=== PATIENT | male | born 1990 | race Caucasian/White ===

== ENCOUNTER 2022-05-09 22:02 | Emergency (ER) | payer SELFPAY | END 2022-05-10 00:05 | disposition home or self-care (01) | LOC: JD.ED 22:02 | DX: S62.611A Displaced fracture of proximal phalanx of left index finger, initial encounter for closed fracture (principal); F17.210 Nicotine dependence, cigarettes, uncomplicated; W23.1XXA Caught, crushed, jammed, or pinched between stationary objects, initial encounter | CPT/HCPCS: 73130-26-LT; 73130-LT; 99283 ==

== ENCOUNTER 2022-05-28 06:16 | Emergency (ER) | payer MEDICAID ==
[2022-05-28] MEDS ORDERED: Sodium Chloride 0.9% 1,000 ML IV ONE (06:47)
[2022-05-28] MEDS ORDERED: Prochlorperazine 10 MG in Sodium Chloride 0.9% 50 ML IV ONE ×2 (06:47→08:00)
[2022-05-28] MEDS ORDERED: Piperacillin/Tazobactam 4.5 GM in Sodium Chloride 0.9% 100 ML IV ONE (11:17)
[2022-05-28] MEDS ORDERED: Iopamidol 612 MG/ML 100 ML Bottle IVPUSH ONE (11:17)
[2022-05-28] MEDS ORDERED: Sodium Chloride 0.9% 10 ML Syringe FLUSH PRN (11:17)
[2022-05-28 12:33] LABS: CORONAVIRUS COVID-19 NAA NEGATIVE (NEGATIVE)
== END 2022-05-28 13:15 | disposition home or self-care (01) ==
LOC: JD.ED 06:16
DX: K72.00 Acute and subacute hepatic failure without coma (principal); D70.9 Neutropenia, unspecified; I10 Essential (primary) hypertension; F17.210 Nicotine dependence, cigarettes, uncomplicated; Z20.822 Contact with and (suspected) exposure to COVID-19
CPT/HCPCS: 0240U; 36415; 71045; 74177; 80053; 81001; 83605; 83690; 85025; 85610; 85730; 86140; 87040; 96361; 96365; 96367; 99284; J0780; J2543; J3490; J7030; Q9967

== ENCOUNTER 2022-06-08 09:37 | Emergency (ER) | payer MEDICAID | END 2022-06-08 10:05 | disposition left against medical advice (07) | LOC: JD.ED 09:37 | DX: Z53.21 Procedure and treatment not carried out due to patient leaving prior to being seen by health care provider (principal) ==

== ENCOUNTER 2022-06-25 02:04 | Emergency (ER) | payer MEDICAID ==
[2022-06-25] MEDS ORDERED: Ondansetron 4 MG/2 ML SDV IVPUSH ONE (02:41)
[2022-06-25] MEDS ORDERED: Sodium Chloride 0.9% 10 ML Syringe FLUSH PRN (02:41)
[2022-06-25] MEDS ORDERED: LORazepam 2 MG/ML SDV IVPUSH ONE (02:42)
[2022-06-25] MEDS ORDERED: Sodium Chloride 0.9% 1,000 ML IV SCH (02:45)
== END 2022-06-25 06:22 | disposition home or self-care (01) ==
LOC: JD.ED 02:04
DX: K70.9 Alcoholic liver disease, unspecified (principal); F10.120 Alcohol abuse with intoxication, uncomplicated; Y90.1 Blood alcohol level of 20-39 mg/100 ml
CPT/HCPCS: 36415; 80053; 80143; 80179; 80306; 80307; 83735; 84443; 85025; 96361; 96374; 96375; 99284; 99284-25; J2060; J2405; J3490; J7030

== ENCOUNTER 2022-09-05 21:35 | Emergency (ER) | payer MEDICAID ==
[2022-09-05] MEDS ORDERED: levETIRAcetam 500 MG Tab PO STA (22:11)
[2022-09-05] MEDS ORDERED: Sodium Chloride 0.9% 1,000 ML IV ONE (22:13)
[2022-09-05] MEDS ORDERED: Magnesium Oxide 400 MG Tab PO ONE (23:36)
== END 2022-09-06 01:03 ==
LOC: JD.ED 21:35
DX: G40.909 Epilepsy, unspecified, not intractable, without status epilepticus (principal); E83.42 Hypomagnesemia; F10.220 Alcohol dependence with intoxication, uncomplicated; I10 Essential (primary) hypertension; F17.220 Nicotine dependence, chewing tobacco, uncomplicated; Z86.16 Personal history of COVID-19; Z79.899 Other long term (current) drug therapy
CPT/HCPCS: 36415; 80053; 80306; 80307; 83735; 85025; 96360; 99284; A9270; J7030; 99283

== ENCOUNTER 2022-10-06 17:35 | Emergency (ER) | payer MEDICAID ==
[2022-10-06] MEDS ORDERED: chlordiazePOXIDE 25 MG Cap PO ONE ×2 (18:25→18:37)
[2022-10-06] MEDS ORDERED: Ondansetron 4 MG Tab.DIS PO ONE (18:51)
== END 2022-10-06 19:06 ==
LOC: JD.ED 17:35
DX: F10.939 Alcohol use, unspecified with withdrawal, unspecified (principal); I10 Essential (primary) hypertension; Z86.16 Personal history of COVID-19; Z79.899 Other long term (current) drug therapy
CPT/HCPCS: 99285; A9270; 99283

== ENCOUNTER 2022-10-07 16:52 | Emergency (ER) | payer MEDICAID ==
[2022-10-07] MEDS ORDERED: Sodium Chloride 0.9% 10 ML Syringe FLUSH PRN (17:09)
[2022-10-07] MEDS ORDERED: LORazepam 2 MG/ML SDV IVPUSH ONE ×3 (17:19→18:16)
[2022-10-07] MEDS ORDERED: Sodium Chloride 0.9% 1,000 ML IV STA ×3 (17:19→21:12)
[2022-10-07 17:32] LABS: BASOPHILS ABSOLUTE AUTO 0.02 K/mm3 (0.01-0.08); BASOPHILS PERCENT AUTO 0.4 % (0.1-1.2); EOSINOPHILS ABSOLUTE AUTO 0.04 K/mm3 (0.04-0.54); EOSINOPHILS PERCENT AUTO 0.8 (0.8-7.0); HEMATOCRIT 40.1 % (40.1-51.0); HEMOGLOBIN 13.7 gm/dl (13.7-17.5); IMMATURE GRAN ABSOLUTE AUTO 0.01 K/mm3 (0.00-0.10); IMMATURE GRAN PERCENT AUTO 0.2 % (<=1.0); LYMPHOCYTES ABSOLUTE AUTO 0.84 K/mm3 (1.32-3.57); LYMPHOCYTES PERCENT AUTO 16.4 % (21.8-53.1); MEAN CORPUSCULAR HEMOGLOBIN 31.7 pg (25.7-32.2); MEAN CORPUSCULAR HGB CONC 34.2 g/dl (32.2-35.5); MEAN CORPUSCULAR VOLUME 92.8 fl (79.0-92.2); MONOCYTES ABSOLUTE AUTO 0.93 K/mm3 (0.30-0.82); MONOCYTES PERCENT AUTO 18.2 % (5.3-12.2); NEUTROPHILS ABSOLUTE AUTO 3.27 K/mm3 (1.78-5.38); PLATELET COUNT,PLT 90 K/mm3 (163-337); RED BLOOD CELL COUNT 4.32 M/mm3 (4.63-6.08); WHITE BLOOD CELL COUNT,WBC 5.11 K/mm3 (4.23-9.07)
[2022-10-07 17:48] LABS: SLIDE REVIEW ABNORMAL SMEAR
[2022-10-07 17:51] LABS: A/G RATIO 0.9 (1-2); ALBUMIN 3.8 g/dl (3.4-5.0); ANION GAP 18.5 (5-15); BILIRUBIN TOTAL 4.3 mg/dL (0.2-1.0); BUN/CREATININE RATIO 16.4 (14-18); CALCIUM 9.2 mg/dL (8.5-10.1); EST CRCL DRUG DOSING (CG) 106.8 mL/min; POTASSIUM,K 3.5 mEq/L (3.5-5.1)
[2022-10-07 17:54] LABS: CREATININE 1.1 mg/dL (0.7-1.3)
[2022-10-07] MEDS: LORazepam 2 MG/ML SDV IVPUSH PRN ×3 (19:46→23:09)
[2022-10-07] MEDS ORDERED: Haloperidol Lactate 5 MG/ML SDV IVPUSH ONE (20:19)
[2022-10-07] MEDS ORDERED: Haloperidol Lactate 5 MG/ML SDV ONE (20:21)
[2022-10-07] MEDS ORDERED: Thiamine 200 MG/2 ML MDV IVPUSH ONE (20:26)
[2022-10-07 21:18] LABS: APPEARANCE,URINE CLEAR (Clear); BILIRUBIN,URINE 3+ (Negative); COLOR,URINE AMBER (Yellow); GLUCOSE,URINE NEGATIVE (Negative); KETONES,URINE 1+ (Negative); LEUKOCYTE ESTERASE,URINE NEGATIVE (Negative); NITRITE,URINE NEGATIVE (Negative); OCCULT BLOOD,URINE 2+ (Negative); PROTEIN,URINE 1+ (Negative); UROBILINOGEN,URINE >=8.0 (0.2-1.0)
[2022-10-07 21:25] LABS: BACTERIA,URINE MODERATE /hpf (FEW); HYALINE CASTS,URINE 0-5 /lpf (0-5); MUCUS,URINE FEW /hpf (FEW); RBC,URINE >100 /hpf (0-5); SQUAMOUS EPITHELIAL CELLS,UR NOT SEEN /hpf (0-5); WBC,URINE 0-5 /hpf (0-5)
[2022-10-08] MEDS ORDERED: Haloperidol Lactate 5 MG/ML SDV ONE (00:06)
[2022-10-08] MEDS ORDERED: Haloperidol Lactate 5 MG/ML SDV IVPUSH ONE (00:07)
[2022-10-08] MEDS: LORazepam 2 MG/ML SDV IVPUSH PRN ×6 (01:49→13:04)
== END 2022-10-08 13:50 ==
LOC: JD.ED 16:52
DX: R44.3 Hallucinations, unspecified (principal); F10.10 Alcohol abuse, uncomplicated; I10 Essential (primary) hypertension; Z86.16 Personal history of COVID-19; Z79.899 Other long term (current) drug therapy; Z20.822 Contact with and (suspected) exposure to COVID-19
CPT/HCPCS: 36415; 80053; 80307; 81001; 82140; 85025; 87635; 96361; 96374; 96375; 96376; 99285; J1630; J2060; J3411; J3490; J7030; U0002

== ENCOUNTER 2022-11-08 13:07 | Emergency (ER) | payer MEDICAID | END 2022-11-08 13:42 | disposition home or self-care (01) | LOC: JD.ED 13:07 | DX: L02.212 Cutaneous abscess of back [any part, except buttock and flank] (principal); L03.312 Cellulitis of back [any part except buttock and flank]; I10 Essential (primary) hypertension; Z86.16 Personal history of COVID-19; Z79.899 Other long term (current) drug therapy | CPT/HCPCS: 99282; 99283 ==

== ENCOUNTER 2022-12-04 03:46 | Emergency (ER) | payer MEDICAID ==
[2022-12-04] MEDS ORDERED: Sodium Chloride 0.9% 1,000 ML IV ONE (03:55)
[2022-12-04 03:59] LABS: BASOPHILS ABSOLUTE AUTO 0.03 K/mm3 (0.01-0.08); BASOPHILS PERCENT AUTO 0.6 % (0.1-1.2); EOSINOPHILS ABSOLUTE AUTO 0.03 K/mm3 (0.04-0.54); EOSINOPHILS PERCENT AUTO 0.6 (0.8-7.0); HEMATOCRIT 43.1 % (40.1-51.0); HEMOGLOBIN 14.4 gm/dl (13.7-17.5); LYMPHOCYTES ABSOLUTE AUTO 0.83 K/mm3 (1.32-3.57); LYMPHOCYTES PERCENT AUTO 17.4 % (21.8-53.1); MEAN CORPUSCULAR HEMOGLOBIN 31.8 pg (25.7-32.2); MEAN CORPUSCULAR HGB CONC 33.4 g/dl (32.2-35.5); MEAN CORPUSCULAR VOLUME 95.1 fl (79.0-92.2); MEAN PLATELET VOLUME 10.6 fl (9.4-12.3); MONOCYTES ABSOLUTE AUTO 0.64 K/mm3 (0.30-0.82); MONOCYTES PERCENT AUTO 13.4 % (5.3-12.2); NEUTROPHILS ABSOLUTE AUTO 3.25 K/mm3 (1.78-5.38); PLATELET COUNT,PLT 55 K/mm3 (163-337); RED BLOOD CELL COUNT 4.53 M/mm3 (4.63-6.08); WHITE BLOOD CELL COUNT,WBC 4.78 K/mm3 (4.23-9.07)
[2022-12-04] MEDS ORDERED: LORazepam 2 MG/ML SDV IM SCH (04:00)
[2022-12-04] MEDS ORDERED: LORazepam 2 MG/ML SDV IVPUSH ONE (04:02)
[2022-12-04 04:18] LABS: A/G RATIO 0.8 (1-2); ALBUMIN 3.7 g/dl (3.4-5.0); ANION GAP 26.2 (5-15); BILIRUBIN TOTAL 4.6 mg/dL (0.2-1.0); BUN/CREATININE RATIO 5.5 (14-18); CALCIUM 9.8 mg/dL (8.5-10.1); EST CRCL DRUG DOSING (CG) 106.8 mL/min; POTASSIUM,K 3.2 mEq/L (3.5-5.1)
[2022-12-04 04:21] LABS: CREATININE 1.1 mg/dL (0.7-1.3); PROTEIN TOTAL,TP 8.5 g/dl (6.4-8.2)
[2022-12-04 04:37] LABS: SLIDE REVIEW ABNORMAL SMEAR
[2022-12-04] MEDS ORDERED: Potassium Chloride 20 MEQ Tab.ER PO ONE (06:22)
== END 2022-12-04 06:51 | disposition home or self-care (01) ==
LOC: JD.ED 03:46
DX: G40.909 Epilepsy, unspecified, not intractable, without status epilepticus (principal); F10.90 Alcohol use, unspecified, uncomplicated; I10 Essential (primary) hypertension; Z86.16 Personal history of COVID-19
CPT/HCPCS: 80053; 80177; 80307; 83735; 85025; 96374; 99284; J2060; J7030; 36415

== ENCOUNTER 2022-12-06 16:28 | Emergency (ER) | payer MEDICAID ==
[2022-12-06 17:02] LABS: BARBITURATE SCREEN,URINE NEGATIVE (CUTOFF=200); BENZODIAZEPINES SCREEN,URINE NEGATIVE (CUTOFF=150); BUPRENORPHINE SCREEN,URINE PRESUMPTIVE POSITIVE (CUTOFF=10); METHADONE SCREEN, URINE NEGATIVE (CUT0FF=200); METHAMPHETAMINES SCREEN, URINE NEGATIVE (CUTOFF=500); OXYCODONE SCREEN,URINE NEGATIVE (CUT0FF=100); PROPOXYPHENE SCREEN,URINE NEGATIVE (CUTOFF=300); THC SCREEN,URINE 20 NG/ML NEGATIVE (CUTOFF=50)
[2022-12-06 17:04] LABS: AMPHETAMINES SCREEN, URINE NEGATIVE (CUTOFF=500)
== END 2022-12-06 18:19 ==
LOC: JD.ED 16:28
DX: F10.929 Alcohol use, unspecified with intoxication, unspecified (principal); F19.10 Other psychoactive substance abuse, uncomplicated; I10 Essential (primary) hypertension; Z86.16 Personal history of COVID-19; Z79.899 Other long term (current) drug therapy
CPT/HCPCS: 36415; 80306; 80307; 99283; 99285

== ENCOUNTER 2023-02-20 09:06 | Emergency (ER) | payer MEDICAID ==
[2023-02-20] MEDS ORDERED: Dextrose 5%-Lactated Ringers 1,000 ML IV SCH (09:30)
[2023-02-20 10:10] LABS: BASOPHILS PERCENT AUTO 0.8 % (0.0-1.0); EOSINOPHILS ABSOLUTE AUTO 0.1 K/mm3 (0.0-0.4); EOSINOPHILS PERCENT AUTO 1.6 % (0.0-6.0); HEMATOCRIT 32.3 % (42.0-52.0); IMMATURE GRAN ABSOLUTE AUTO 0.01 K/mm3 (0.00-0.05); IMMATURE GRAN PERCENT AUTO 0.3 % (0.0-0.4); LYMPHOCYTES ABSOLUTE AUTO 0.6 K/mm3 (1.0-4.8); LYMPHOCYTES PERCENT AUTO 14.5 % (24.0-44.0); MEAN CORPUSCULAR HEMOGLOBIN 33.6 pg (28.0-32.0); MEAN CORPUSCULAR HGB CONC 35.9 g/dl (32.0-36.0); MEAN PLATELET VOLUME 11.3 fl (9.4-12.4); MONOCYTES ABSOLUTE AUTO 0.7 K/mm3 (0.0-0.8); MONOCYTES PERCENT AUTO 19.3 % (0.0-8.0); NEUTROPHILS ABSOLUTE AUTO 2.4 K/mm3 (1.8-7.7); NEUTROPHILS PERCENT AUTO 63.5 % (41.0-71.0); PLATELET COUNT,PLT 53 K/mm3 (150-400); RED BLOOD CELL COUNT 3.45 M/mm3 (4.52-5.90); WHITE BLOOD CELL COUNT,WBC 3.79 K/mm3 (3.9-11.3)
[2023-02-20 10:18] LABS: HEMOGLOBIN 11.6 gm/dl (14.0-18.0); MEAN CORPUSCULAR VOLUME 93.6 fl (83.0-99.0)
[2023-02-20 10:28] LABS: INR 3.08; PROTHROMBIN TIME 30.3 SECONDS (9.7-12.0)
[2023-02-20 10:29] LABS: PTT,PARTIAL THROMBOPLSTIN TIME 30.8 SECONDS (21.7-31.4)
[2023-02-20 10:48] LABS: A/G RATIO 0.7 (1-2); ALBUMIN 2.7 g/dl (3.4-5.0); ANION GAP 14.3 (5-15); BILIRUBIN TOTAL 13.9 mg/dL (0.2-1.0); BUN/CREATININE RATIO 8.6 (14-18); CALCIUM 8.4 mg/dL (8.5-10.1); CREATININE 0.7 mg/dL (0.7-1.3); EST CRCL DRUG DOSING (CG) 167.83 mL/min; POTASSIUM,K 3.3 mEq/L (3.5-5.1)
[2023-02-20 11:00] LABS: PROTEIN TOTAL,TP 6.8 g/dl (6.4-8.2)
[2023-02-20 11:04] LABS: SLIDE REVIEW ABNORMAL SMEAR
[2023-02-20] MEDS ORDERED: LORazepam 2 MG/ML SDV IVPUSH ONE (12:32)
== END 2023-02-20 13:08 | disposition home or self-care (01) ==
LOC: JD.ED 09:06
DX: K76.6 Portal hypertension (principal); K70.30 Alcoholic cirrhosis of liver without ascites; Z86.16 Personal history of COVID-19; Z79.899 Other long term (current) drug therapy
CPT/HCPCS: 36415; 76705; 80053; 80143; 82977; 83690; 85025; 85610; 85730; 96360; 99285; J7121; 99284

== ENCOUNTER 2023-03-09 08:58 | Emergency (ER) | payer MEDICAID ==
[2023-03-09] MEDS ORDERED: Iopamidol 612 MG/ML 100 ML Bottle IVPUSH ONE (10:04)
[2023-03-09] MEDS ORDERED: Sodium Chloride 0.9% 10 ML Syringe FLUSH PRN (10:04)
[2023-03-09 10:15] LABS: BASOPHILS ABSOLUTE AUTO 0.1 K/mm3 (0.0-0.2); BASOPHILS PERCENT AUTO 0.7 % (0.0-1.0); EOSINOPHILS ABSOLUTE AUTO 0.1 K/mm3 (0.0-0.4); EOSINOPHILS PERCENT AUTO 1.1 % (0.0-6.0); HEMATOCRIT 33.4 % (42.0-52.0); HEMOGLOBIN 11.9 gm/dl (14.0-18.0); IMMATURE GRAN ABSOLUTE AUTO 0.04 K/mm3 (0.00-0.05); IMMATURE GRAN PERCENT AUTO 0.5 % (0.0-0.4); LYMPHOCYTES ABSOLUTE AUTO 0.8 K/mm3 (1.0-4.8); LYMPHOCYTES PERCENT AUTO 9.3 % (24.0-44.0); MEAN CORPUSCULAR HGB CONC 35.6 g/dl (32.0-36.0); MEAN CORPUSCULAR VOLUME 98.2 fl (83.0-99.0); MEAN PLATELET VOLUME 10.5 fl (9.4-12.4); MONOCYTES ABSOLUTE AUTO 0.8 K/mm3 (0.0-0.8); MONOCYTES PERCENT AUTO 10.3 % (0.0-8.0); NEUTROPHILS ABSOLUTE AUTO 6.4 K/mm3 (1.8-7.7); NEUTROPHILS PERCENT AUTO 78.1 % (41.0-71.0); PLATELET COUNT,PLT 124 K/mm3 (150-400); WHITE BLOOD CELL COUNT,WBC 8.19 K/mm3 (3.9-11.3)
[2023-03-09 10:42] LABS: A/G RATIO 0.4 (1-2); ALBUMIN 1.8 g/dl (3.4-5.0); ANION GAP 15.8 (5-15); BILIRUBIN TOTAL 13.5 mg/dL (0.2-1.0); BUN/CREATININE RATIO 13.8 (14-18); CALCIUM 8.4 mg/dL (8.5-10.1); CREATININE 0.8 mg/dL (0.7-1.3); EST CRCL DRUG DOSING (CG) 154.13 mL/min
[2023-03-09 10:48] LABS: POTASSIUM,K 3.8 mEq/L (3.5-5.1)
== END 2023-03-09 12:55 | disposition home or self-care (01) ==
LOC: JD.ED 08:58
DX: K70.31 Alcoholic cirrhosis of liver with ascites (principal); I10 Essential (primary) hypertension; Z86.16 Personal history of COVID-19; Z79.899 Other long term (current) drug therapy
CPT/HCPCS: 36415; 74177; 80053; 85025; 99284; J3490; Q9967

== ENCOUNTER 2023-03-10 13:32 | Emergency (ER) | payer MEDICAID ==
[2023-03-10] MEDS ORDERED: Sodium Chloride 0.9% 10 ML Syringe FLUSH PRN (13:59)
[2023-03-10] MEDS ORDERED: Sodium Chloride 0.9% 500 ML IV ONE (13:59)
[2023-03-10 14:23] LABS: BASE EXCESS VENOUS -5.7 (-4.0-2.0); BICARBONATE,VENOUS 18.7 meq/L (22-26); O2 SATURATION VENOUS 62.7; PCO2 VENOUS 34.5 mmHg (41-51); PH,VENOUS 7.35 (7.30-7.40)
[2023-03-10 14:31] LABS: BASOPHILS ABSOLUTE AUTO 0.1 K/mm3 (0.0-0.2); BASOPHILS PERCENT AUTO 0.6 % (0.0-1.0); EOSINOPHILS ABSOLUTE AUTO 0.1 K/mm3 (0.0-0.4); HEMATOCRIT 35.4 % (42.0-52.0); HEMOGLOBIN 12.4 gm/dl (14.0-18.0); IMMATURE GRAN ABSOLUTE AUTO 0.05 K/mm3 (0.00-0.05); IMMATURE GRAN PERCENT AUTO 0.5 % (0.0-0.4); LYMPHOCYTES ABSOLUTE AUTO 0.7 K/mm3 (1.0-4.8); LYMPHOCYTES PERCENT AUTO 7.1 % (24.0-44.0); MEAN CORPUSCULAR HEMOGLOBIN 34.4 pg (28.0-32.0); MEAN CORPUSCULAR VOLUME 98.3 fl (83.0-99.0); MEAN PLATELET VOLUME 10.2 fl (9.4-12.4); MONOCYTES ABSOLUTE AUTO 1.1 K/mm3 (0.0-0.8); MONOCYTES PERCENT AUTO 11.1 % (0.0-8.0); NEUTROPHILS ABSOLUTE AUTO 7.7 K/mm3 (1.8-7.7); NEUTROPHILS PERCENT AUTO 79.7 % (41.0-71.0); PLATELET COUNT,PLT 133 K/mm3 (150-400); WHITE BLOOD CELL COUNT,WBC 9.62 K/mm3 (3.9-11.3)
[2023-03-10 14:48] LABS: INR 3.64; PROTHROMBIN TIME 35.4 SECONDS (9.7-12.0)
[2023-03-10 14:58] LABS: A/G RATIO 0.4 (1-2); ALBUMIN 1.9 g/dl (3.4-5.0); ALKALINE PHOSPHATASE 146 U/L (46-116); ANION GAP 15.7 (5-15); BILIRUBIN TOTAL 15.3 mg/dL (0.2-1.0); BLOOD UREA NITROGEN,BUN 12 mg/dL (7-18); CALCIUM 8.6 mg/dL (8.5-10.1); CARBON DIOXIDE,CO2 20 mEq/L (21-32); CHLORIDE,CL 103 mEq/L (98-107); ESTIMATED GFR 121 mL/min (>60); LIPASE 20 U/L (16-77); SODIUM,NA 135 mEq/L (136-145)
[2023-03-10 15:03] LABS: GLUCOSE RANDOM 108 mg/dL (70-99)
[2023-03-10 15:04] LABS: ALANINE AMINOTRANSFERASE,ALT 35 U/L (16-63); ASPARTATE AMNIOTRANSFERASE,AST 116 U/L (15-37); CREATININE 0.8 mg/dL (0.7-1.3); POTASSIUM,K 3.7 mEq/L (3.5-5.1); PROTEIN TOTAL,TP 6.3 g/dl (6.4-8.2)
[2023-03-10 17:05] LABS: APPEARANCE,URINE CLEAR (Clear); BILIRUBIN,URINE 3+ (Negative); COLOR,URINE YELLOW (Yellow); GLUCOSE,URINE TRACE (Negative); KETONES,URINE NEGATIVE (Negative); LEUKOCYTE ESTERASE,URINE NEGATIVE (Negative); NITRITE,URINE NEGATIVE (Negative); OCCULT BLOOD,URINE TRACE-INTACT (Negative); PH,URINE 6.5 (5.0-8.0); PROTEIN,URINE NEGATIVE (Negative)
[2023-03-10 17:18] LABS: BACTERIA,URINE FEW /hpf (FEW); MUCUS,URINE FEW /hpf (FEW); SQUAMOUS EPITHELIAL CELLS,UR 0-5 /hpf (0-5); WBC,URINE 0-5 /hpf (0-5)
[2023-03-10] MEDS ORDERED: Iopamidol 612 MG/ML 100 ML Bottle IVPUSH ONE (18:33)
[2023-03-10] MEDS ORDERED: Sodium Chloride 0.9% 10 ML Syringe FLUSH ONE (18:33)
[2023-03-10] MEDS ORDERED: LORazepam 1 MG Tab PO ONE (19:49)
[2023-03-10] MEDS ORDERED: Rifaximin 550 MG Tab PO ONE (19:50)
== END 2023-03-10 20:39 | disposition home or self-care (01) ==
LOC: JD.ED 13:32
DX: K70.9 Alcoholic liver disease, unspecified (principal); R41.82 Altered mental status, unspecified; I10 Essential (primary) hypertension
CPT/HCPCS: 36415; 70450; 71045; 74177; 80053; 80307; 81001; 82140; 82803; 83690; 85025; 85610; 86140; 96360; 99285; A9270; J3490; J7030; Q9967; 99284

== ENCOUNTER 2023-03-18 21:57 | Emergency (ER) | payer MEDICAID ==
[2023-03-18 23:39] LABS: BASOPHILS ABSOLUTE AUTO 0.1 K/mm3 (0.0-0.2); BASOPHILS PERCENT AUTO 0.6 % (0.0-1.0); EOSINOPHILS ABSOLUTE AUTO 0.2 K/mm3 (0.0-0.4); HEMATOCRIT 35.9 % (42.0-52.0); HEMOGLOBIN 13.1 gm/dl (14.0-18.0); IMMATURE GRAN ABSOLUTE AUTO 0.07 K/mm3 (0.00-0.05); IMMATURE GRAN PERCENT AUTO 0.5 % (0.0-0.4); LYMPHOCYTES ABSOLUTE AUTO 0.9 K/mm3 (1.0-4.8); LYMPHOCYTES PERCENT AUTO 5.9 % (24.0-44.0); MEAN CORPUSCULAR HEMOGLOBIN 35.3 pg (28.0-32.0); MEAN CORPUSCULAR HGB CONC 36.5 g/dl (32.0-36.0); MEAN CORPUSCULAR VOLUME 96.8 fl (83.0-99.0); MEAN PLATELET VOLUME 9.9 fl (9.4-12.4); MONOCYTES ABSOLUTE AUTO 1.5 K/mm3 (0.0-0.8); NEUTROPHILS ABSOLUTE AUTO 12.1 K/mm3 (1.8-7.7); PLATELET COUNT,PLT 111 K/mm3 (150-400); RED BLOOD CELL COUNT 3.71 M/mm3 (4.52-5.90)
[2023-03-18 23:55] LABS: INR 3.23; PROTHROMBIN TIME 31.7 SECONDS (9.7-12.0)
[2023-03-19 00:08] LABS: A/G RATIO 0.4 (1-2); ALKALINE PHOSPHATASE 158 U/L (46-116); ANION GAP 13.4 (5-15); BILIRUBIN TOTAL 17.3 mg/dL (0.2-1.0); BLOOD UREA NITROGEN,BUN 21 mg/dL (7-18); BUN/CREATININE RATIO 23.3 (14-18); CALCIUM 8.7 mg/dL (8.5-10.1); CARBON DIOXIDE,CO2 21 mEq/L (21-32); CHLORIDE,CL 102 mEq/L (98-107); ESTIMATED GFR 116 mL/min (>60); SODIUM,NA 133 mEq/L (136-145)
[2023-03-19 00:12] LABS: POTASSIUM,K 3.4 mEq/L (3.5-5.1)
[2023-03-19 00:13] LABS: CREATININE 0.9 mg/dL (0.7-1.3); GLUCOSE RANDOM 128 mg/dL (70-99); PROTEIN TOTAL,TP 6.8 g/dl (6.4-8.2); TROPONIN I HIGH SENSITIVITY 18 pg/mL (<=76)
[2023-03-19 00:14] LABS: ALANINE AMINOTRANSFERASE,ALT 38 U/L (16-63); ASPARTATE AMNIOTRANSFERASE,AST 118 U/L (15-37)
== END 2023-03-19 01:14 ==
LOC: JD.ED 21:57
DX: I10 Essential (primary) hypertension; Z86.16 Personal history of COVID-19; Z79.899 Other long term (current) drug therapy
CPT/HCPCS: 36415; 71045; 71045-26; 80053; 84484; 85025; 85610; 93005; 93010; 99282; 99284

== ENCOUNTER 2023-04-28 18:03 | Emergency (ER) | payer MEDICAID ==
[2023-04-28] MEDS ORDERED: Sodium Chloride 0.9% 10 ML Syringe FLUSH PRN (19:05)
[2023-04-28 19:47] LABS: BASOPHILS PERCENT AUTO 0.8 % (0.0-1.0); EOSINOPHILS ABSOLUTE AUTO 0.1 K/mm3 (0.0-0.4); EOSINOPHILS PERCENT AUTO 2.5 % (0.0-6.0); HEMATOCRIT 25.4 % (42.0-52.0); IMMATURE GRAN ABSOLUTE AUTO 0.01 K/mm3 (0.00-0.05); IMMATURE GRAN PERCENT AUTO 0.2 % (0.0-0.4); LYMPHOCYTES ABSOLUTE AUTO 1.2 K/mm3 (1.0-4.8); LYMPHOCYTES PERCENT AUTO 25.5 % (24.0-44.0); MEAN CORPUSCULAR HEMOGLOBIN 34.5 pg (28.0-32.0); MEAN CORPUSCULAR HGB CONC 35.4 g/dl (32.0-36.0); MEAN CORPUSCULAR VOLUME 97.3 fl (83.0-99.0); MEAN PLATELET VOLUME 9.6 fl (9.4-12.4); MONOCYTES PERCENT AUTO 20.1 % (0.0-8.0); NEUTROPHILS ABSOLUTE AUTO 2.5 K/mm3 (1.8-7.7); NEUTROPHILS PERCENT AUTO 50.9 % (41.0-71.0); PLATELET COUNT,PLT 116 K/mm3 (150-400); RED BLOOD CELL COUNT 2.61 M/mm3 (4.52-5.90); WHITE BLOOD CELL COUNT,WBC 4.82 K/mm3 (3.9-11.3)
[2023-04-28 20:08] LABS: C-REACTIVE PROTEIN 1.4 mg/dL (<1.0); ETHANOL BLOOD MEDICAL 0.01 gm% (0.00); MAGNESIUM 1.2 mg/dL (1.8-2.4)
[2023-04-28 20:16] LABS: A/G RATIO 0.3 (1-2); ALBUMIN 1.4 g/dl (3.4-5.0); ANION GAP 12.4 (5-15); CALCIUM 8.1 mg/dL (8.5-10.1); EST CRCL DRUG DOSING (CG) 116.4 mL/min
[2023-04-28 20:17] LABS: POTASSIUM,K 3.4 mEq/L (3.5-5.1)
[2023-04-28 20:18] LABS: PROTEIN TOTAL,TP 6.6 g/dl (6.4-8.2)
[2023-04-28] MEDS ORDERED: Albumin 25% 12.5 GM/50 ML BAG IV ONE (21:03)
[2023-04-28] MEDS ORDERED: Potassium Chloride 20 MEQ Tab.ER PO ONE (21:04)
[2023-04-28] MEDS ORDERED: Furosemide 40 MG/4 ML VIAL IVPUSH ONE (21:05)
[2023-04-28] MEDS ORDERED: Lactulose Soln 10 GM/15 ML 30 ML UD Cup PO ONE (21:06)
[2023-04-28 22:13] LABS: PROTHROMBIN TIME 29.6 SECONDS (9.7-12.0)
[2023-04-28 22:20] LABS: INR 2.76
== END 2023-04-28 23:26 | disposition home or self-care (01) ==
LOC: JD.ED 18:03
DX: K70.31 Alcoholic cirrhosis of liver with ascites (principal); F10.929 Alcohol use, unspecified with intoxication, unspecified; E72.20 Disorder of urea cycle metabolism, unspecified; Z79.899 Other long term (current) drug therapy; Z86.16 Personal history of COVID-19
CPT/HCPCS: 36415; 80053; 80307; 82140; 83690; 83735; 85025; 85610; 86140; 96365; 96368; 96375; 99284; A9270; J1940; J3475; J3490; P9047

== ENCOUNTER 2023-04-29 23:55 | Emergency (ER) | payer MEDICAID ==
[2023-04-30] MEDS ORDERED: Sodium Chloride 0.9% 10 ML Syringe FLUSH PRN (00:34)
[2023-04-30] MEDS ORDERED: Furosemide 40 MG/4 ML VIAL IVPUSH ONE (00:35)
[2023-04-30 00:45] LABS: HEMOGLOBIN 9.9 gm/dl (14.0-18.0); MEAN CORPUSCULAR HEMOGLOBIN 34.7 pg (28.0-32.0); MEAN CORPUSCULAR HGB CONC 35.4 g/dl (32.0-36.0); MEAN CORPUSCULAR VOLUME 98.2 fl (83.0-99.0); MEAN PLATELET VOLUME 9.6 fl (9.4-12.4); PLATELET COUNT,PLT 134 K/mm3 (150-400); RED BLOOD CELL COUNT 2.85 M/mm3 (4.52-5.90); WHITE BLOOD CELL COUNT,WBC 6.04 K/mm3 (3.9-11.3)
[2023-04-30 01:06] LABS: ANISOCYTOSIS 1+ SLIGHT; BAND PERCENT MAN 0 % (0-10); BASOPHILS PERCENT MAN 1 (0.2-1.2); BURR CELLS FEW; EOSINOPHILS PERCENT MAN 3 % (0.8-7.0); LYMPHOCYTES % ATYPICAL MANUAL 0 %; LYMPHOCYTES PERCENT MAN 25 % (20-40); MONOCYTES PERCENT MAN 14 % (2-10); POLYCHROMASIA 1+ SLIGHT
[2023-04-30 01:07] LABS: PLATELET COUNT ESTIMATE ADEQUATE; TARGET CELLS FEW
== END 2023-04-30 02:01 | disposition home or self-care (01) ==
LOC: JD.ED 23:55
DX: R06.02 Shortness of breath (principal); K70.31 Alcoholic cirrhosis of liver with ascites; R60.0 Localized edema; I10 Essential (primary) hypertension; Z86.16 Personal history of COVID-19; Z79.899 Other long term (current) drug therapy
CPT/HCPCS: 36415; 71045; 80307; 82140; 83605; 85007; 85027; 86140; 96374; 99285; J1940; 99284